=== PATIENT | female | born 1960 | race Caucasian/White ===

== ENCOUNTER 2024-04-23 23:21 | Emergency (ER) | payer OTHER, SELFPAY ==
[2024-04-23 23:36] VITALS: BP 145/87; PULSE 105; RESP 23; TEMP 36.8; O2SAT 94; BMI 29.2
[2024-04-24 01:36] VITALS: BP 137/82; PULSE 105; RESP 26; O2SAT 89
--- NOTE | 2024-04-24 01:40 | PC.NURSE ---
tachypnea, shortness of breath, increased work of breathing, wheezing, pursed lip breathing and accessory muscle use; reports symptoms started ulisses and worsening since because a pharmacy lied to me Patient refuses Iv or blood works states there is no reason to do that.
[2024-04-24 01:44] VITALS: PULSE 93; RESP 25; O2SAT 94
[2024-04-24 02:00] VITALS: BP 120/65; PULSE 94; O2SAT 93
[2024-04-24 02:24] VITALS: BP 164/88; PULSE 113; O2SAT 91
--- NOTE | 2024-04-24 02:29 | ED.SOB ---
HPI - SOB/Dyspnea General Chief Complaint: Shortness of Breath/Dyspnea Stated Complaint: hard time breathing Time Seen by Provider: 04/24/24 01:36 Source: patient Mode of arrival: Ambulatory Limitations: no limitations History of Present Illness HPI Narrative: 63-year-old female with history of asthma and COPD presents requesting a breathing treatment and prednisone. Patient states ?I need a breathing treatment now and 10 days of prednisone for my breathing?. Is not using her home albuterol pump. She states that the pharmacies in [place] have ?lied to her? 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 Related Data Home Medications Medication Instructions Recorded Confirmed albuterol sulfate 90 mcg/actuation 2 inh inhalation Q4H PRN 02/08/24 03/11/24 breath activated powder inhaler amlodipine 5 mg tablet 5 mg PO DAILY 02/08/24 03/11/24 atorvastatin 40 mg tablet 40 mg PO BEDTIME 02/08/24 03/11/24 clonidine HCl 0.1 mg tablet 0.1 mg PO BEDTIME 02/08/24 03/11/24 cyclobenzaprine 5 mg tablet 5 mg PO TID PRN 02/08/24 03/11/24 empagliflozin 10 mg tablet 10 mg PO DAILY 02/08/24 03/11/24 glimepiride 1 mg tablet 1 mg PO DAILY 02/08/24 03/11/24 glimepiride 4 mg tablet 4 mg PO DAILY 02/08/24 03/11/24 insulin NPH isoph U-100 human 100 10 unit SUBCUT QAM 02/08/24 03/11/24 unit/mL subcutaneous suspension (Humulin N NPH U-100 Insulin (isophane susp)) lisinopril 20 mg tablet 20 mg PO DAILY 02/08/24 03/11/24 metformin 500 mg tablet 500 mg PO DAILY 02/08/24 03/11/24 montelukast 10 mg tablet 10 mg PO DAILY 02/08/24 03/11/24 (Singulair) spironolactone 25 mg tablet 25 mg PO DAILY 02/08/24 03/11/24 blood sugar diagnostic (True #10 ea 03/11/24 03/11/24 Metrix Glucose Test Strip) Previous Rx's Medication Instructions Recorded fluticasone 500 mcg-salmeterol 50 1 inh inhalation BID #60 ea 03/11/24 mcg/dose blistr powdr for inhalation fluticasone 500 mcg-salmeterol 50 1 inh inhalation BID #60 ea 03/27/24 mcg/dose blistr powdr for inhalation (Advair Diskus) ipratropium 0.5 mg-albuterol 3 mg 3 ml inhalation Q3-4H PRN 04/24/24 (2.5 mg base)/3 mL nebulization shortness of breath or wheezing soln #720 mL prednisone 20 mg tablet 40 mg (2 x 20 mg) PO DAILY #10 tabs 04/24/24 Allergies Allergy/AdvReac Type Severity Reaction Status Date / Time codeine [CODEINE] Allergy Unknown Verified 03/11/24 11:05 Sulfa (Sulfonamide Allergy Unknown Verified 03/11/24 11:05 Antibiotics) [SULFA (SULFONAMIDE ANTIBIOTICS)] budesonide [From Symbicort] Allergy Verified 04/23/24 23:36 buspirone [From BuSpar] Allergy Verified 04/23/24 23:36 formoterol [From Symbicort] Allergy Verified 04/23/24 23:36 morphine Allergy Verified 04/23/24 23:36 oxycodone Allergy Verified 04/23/24 23:36 pantoprazole [From Protonix] Allergy Verified 04/23/24 23:36 Patient History Social History Smoking Status: Current every day smoker Smoking Status: Current every day smoker Exam Initial Vital Signs Initial Vital Signs: Vital Signs Temperature 98.2 F 04/23/24 23:36 Pulse Rate 105 H 04/23/24 23:36 Respiratory Rate 23 04/23/24 23:36 Blood Pressure 145/87 H 04/23/24 23:36 Pulse Oximetry 94 04/23/24 23:36 Oxygen Delivery Method Room Air 04/23/24 23:36 Const: Awake, alert, no acute distress, nontoxic appearing Cardiac: regular rate, regular rhythm RESP: Conversational without dyspnea, no wheezing Skin: Warm, Dry, intact, no rashes Neuro: AO x3, CN II-XII grossly intact, moves all extremities Course Orders Ordered: Discontinued Medications Albuterol (Albuterol Hfa Prepack) 1 box [facility] ONE Stop: 01/08/25 02:31 Last Admin: 04/24/24 02:36 Dose: 1 box Documented By: Albuterol/Ipratropium (Albuterol/Ipratropium 3 Ml Ampul) 3 ml INH NOW ONE Stop: 04/24/24 02:31 Last Admin: 04/24/24 02:36 Dose: 3 ml Documented By: Prednisone (Prednisone 20 Mg Tablet) 40 mg PO NOW ONE Stop: 04/24/24 02:51 Last Admin: 04/24/24 02:53 Dose: 40 mg Documented By: KB Vital Signs Vital signs: Vital Signs - 8 hr 04/23/24 23:36 04/24/24 01:36 04/24/24 01:36 Temperature 98.2 F Pulse Rate 105 H 105 H Respiratory Rate 23 26 H Blood Pressure 145/87 H 137/82 Pulse Oximetry 94 89 L Oxygen Delivery Method Room Air Room Air 04/24/24 01:44 Temperature Pulse Rate 93 H Respiratory Rate 25 H Blood Pressure Pulse Oximetry 94 Oxygen Delivery Method Room Air MDM - SOB/Dyspnea MDM Narrative Medical decision making narrative: Patient requesting breathing treatment and steroids for her COPD and asthma. Saturating well on room air. No obvious wheezing on pulmonary exam. patient not using her albuterol pump. Single duoneb treatment given. Patient counseled on appropriate steroid dosings and 5 day course sent to pharmacy of choice. ED return precautions discussed. Discharge Plan Departure Patient Disposition: Home Clinical Impression: Asthma with COPD Instructions: DI for Chronic Obstructive Pulmonary Disease Activity Restrictions/Additional Instructions: Follow up with your director of archives Prescriptions: No Action fluticasone propion-salmeterol [Advair Diskus] 500-50 mcg/dose blister with device 1 inh inhalation BID Qty: 60 11RF Rx Instructions: Rinse mouth with water, gargle and spit after each use ipratropium-albuterol 0.5 mg-3 mg(2.5 mg base)/3 mL solution for nebulization 3 ml inhalation Q3-4H PRN (Reason: shortness of breath or wheezing) Qty: 720 11RF prednisone 20 mg tablet 40 mg PO DAILY Qty: 10 0RF albuterol sulfate 90 mcg/actuation aerosol powdr breath activated 2 inh inhalation Q4H PRN amlodipine 5 mg tablet 5 mg PO DAILY clonidine HCl 0.1 mg tablet 0.1 mg PO BEDTIME atorvastatin 40 mg tablet 40 mg PO BEDTIME cyclobenzaprine 5 mg tablet 5 mg PO TID PRN empagliflozin 10 mg tablet 10 mg PO DAILY glimepiride 1 mg tablet 1 mg PO DAILY glimepiride 4 mg tablet 4 mg PO DAILY Humulin N NPH U-100 Insulin 100 unit/mL suspension 10 unit SUBCUT QAM lisinopril 20 mg tablet 20 mg PO DAILY metformin 500 mg tablet 500 mg PO DAILY montelukast [Singulair] 10 mg tablet 10 mg PO DAILY spironolactone 25 mg tablet 25 mg PO DAILY (DME) True Metrix Glucose Test Strip Strip See Rx Instructions .ROUTE QAM Qty: 10 Rx Instructions: As directed fluticasone propion-salmeterol 500-50 mcg/dose blister with device 1 inh inhalation BID Qty: 60 11RF Rx Instructions: Rinse mouth with water, gargle and spit after each use Referrals: Nikolay Cr MD [Primary Care Provider] - Stand Alone Forms: Patient Portal/API/Survey
[2024-04-24 02:30] VITALS: PULSE 112; RESP 18; O2SAT 93
[2024-04-24] MEDS: ALBUTEROL HFA PREPACK 1 BOX MISC (02:36)
[2024-04-24] MEDS: ALBUTEROL/IPRATROPIUM 3 ML AMPUL INH (02:36)
[2024-04-24] MEDS: predniSONE 20 MG TABLET 40 MG PO (02:53)
--- NOTE | 2024-04-24 02:55 | PC.NURSE ---
patient given dc instructions, prednisone 40 mg per day for five days at [facility] [employer] [place]. Patient states No, she has to write for 10 days not 5 days. Explained that the provider will not be writing for 10 days as she has determined it is not medically appropriate but the patient is free to return or visit any other medical facility to ask for a prescription for 10 days, however our provider will not be changing the RX. Provided patient first dose of prednisone 40 mg oral and explained this would social services coordinator her 6 days since there are 5 additional days at pharmacy. Patient states fine but Ill just be back cause 5 days wont work or I call my doc and tell him i need 10 days. Patient refused update blood pressure.
[2024-04-24 02:58] VITALS: PULSE 95; RESP 20; O2SAT 94
== END 2024-04-24 02:58 | disposition home or self-care (01) ==
PROVIDERS: Emergency Provider Emergency Medicine; Family Provider Family Medicine; PCP Family Medicine Sports Medicine
DX: J44.9 Chronic obstructive pulmonary disease, unspecified (principal); F17.200 Nicotine dependence, unspecified, uncomplicated
CPT/HCPCS: 99283